=== PATIENT | female | born 2000 | race Caucasian/White ===

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

== ENCOUNTER → 2022-02-14 | Outpatient (REF) | payer OTHER ==
[~2022-02-14] MED LIST: HAIL1TAB PO; HYDR-3715 PO
== END ==
LOC: M LAB REF 16:47
PROVIDERS: ATTEND Pediatrics
DX: J06.9 Acute upper respiratory infection, unspecified (principal)